=== PATIENT | female | born 1985 ===

== ENCOUNTER 2017-05-08 14:49 | Emergency (ER) | payer MEDICAID, OTHER ==
[~2017-05-08] VITALS: Ht 170.2 cm; Wt 72.7 kg
[~2017-05-08 14:49] MED LIST: IBUP-1827 PO
[2017-05-08 15:12] VITALS: BP 110/74; PULSE 100; RESP 20; O2SAT 99
[2017-05-08] MEDS ORDERED: 0.9% Sodium Chloride 1,000 ML IV ONE (16:02)
--- NOTE | 2017-05-08 16:02 | ED.REPORT ---
HPI-Abd Pain F Under 40 Date of Service May 08, 2017 ED Provider: History of Present Illness: 31-year-old female here for lower abdominal pain. Onset yesterday when she was having a bowel movement. Having a bowel movement worsened her pain but her pain is still severe even when not on the toilet. Not nauseous, no vomiting. She is able to tolerate by mouth in take. She feels like she is constipated and needs to have a bowel movement. Denies blood in her stool. Denies urinary symptoms, vaginal discharge. She also complains of low back pain bilateral that started yesterday. No radiation. Nursing Notes Stated Complaint: ABDOMINAL PAIN Chief Complaint: Female Abdominal Pain Nursing Notes Reviewed: Yes Allergies: Coded Allergies: Penicillins (Verified Allergy, Severe, RASH, 11/25/15) ciprofloxacin (Verified Allergy, Severe, RASH, 11/25/15) ciprofloxacin HCl (Verified Allergy, Severe, RASH, 11/25/15) Scheduled PRN Ibuprofen (Ibuprofen) 600 Mg Tablet 600 MG PO TID PRN PRN For Pain General Time Seen by MD: 15:52 Chief Complaint Abdominal pain, Constipation Hx Obtained From: Patient Arrived By: Walk-in Onset Occurred: 1 day ago Symptom Duration: Constant Location: : Abdomen lower Radiation: : Does not radiate Severity: Current: Severe Severity: Maximum: Severe Recent Healthcare: No recent doctor visit Similar Sx Previous: No Past Medical History Past Medical History Opioid dependence Alcohol abuse Pancreatitis Past Surgical History Carpal tunnel right hand, D and C Smoking History Current Every Day Smoker Social History Alcohol Use: In recovery Drug Use: IV drugs, Meth, Other Occupation lives with family, no work or school Ambulatory Status Independent Review of Systems Constitutional: Denies: Chills, Fatigue, Fever Respiratory: Denies: Dyspnea on exertion Cardiovascular: Denies: Chest pain GI: Reports: Abdominal pain, Constipation, Denies: Diarrhea, Nausea, Vomiting Female: Denies: Dysuria Musculoskeletal: Reports: Back pain Complete sys rev & neg: except as marked. Physical Exam Initial Vital Signs Vital Signs (First) Date Time Temp Pulse Resp B/P Pulse Ox O2 Delivery O2 Flow Rate FiO2 05/08/17 15:12 37.0 100 20 110/74 99 Room Air Initial VS: Reviewed, Vital signs normal General/Constitutional: Awake, Alert, Well appearing Distress / Hydration: Positive: Distress mild Patient rolling around and holding her stomach in the gurney, intermittently crying through the exam Respiratory / Chest: Breath sounds NL, Breath sounds = bilat, No respiratory distress, No rales, No rhonchi, No wheezing Cardiovascular: Heart rate NL, Regular rhythm, Heart sounds NL, Peripheral circulation NL Abdomen: Atraumatic, McBurney's non-tender, No guarding, No rebound, BS normoactive, No distention, No hernia, No palpable mass, No pulsatile mass Tenderness/Guarding/Rebound: Positive: Tender LLQ... (Severe), Tender RLQ... ( Moderate) Rectal exam exquisitely tender, guaiac-negative. No stool noted in the vault. No obvious abscess palpated but exam was quick as of the severity of the pain she was having. Back: Inspection NL, No CVA tenderness Flank / Spine / Paraspinal: Positive: Lumbar paraspinal tend... (Mid) Skin: Atraumatic, Color NL, No rash Interpretation & Diagnostics Lab Results Interpretation Result Diagram: 05/08/17 1600 05/08/17 1600 Test 05/08/17 16:00 White Blood Count 8.6th/mm3 (3.8-10.1) Red Blood Count 4.58mil/mm3 (3.90-5.20) Hemoglobin 12.8g/dL (12.0-15.6) Hematocrit 39.0% (35.0-46.0) Mean Corpuscular Volume 85.2fL (81-100) Mean Corpuscular Hemoglobin 27.9pg (27.0-35.0) Mean Corpuscular Hemoglobin Concent 32.8% (32.0-37.0) Red Cell Distribution Width 17.7% (12.3-15.4) Platelet Count 319bil/L (150-400) Neutrophils (%) (Auto) 75.4% (40-74) Lymphocytes (%) (Auto) 18.1% (14-46) Monocytes (%) (Auto) 5.6% (4-12) Eosinophils (%) (Auto) 0.7% (0-5) Basophils (%) (Auto) 0.1% (0-3) Sodium Level 137mEq/L (134-144) Potassium Level 3.8mEq/L (3.5-5.2) Chloride Level 102mEq/L (97-108) Carbon Dioxide Level 21mmol/L (18-29) Blood Urea Nitrogen 6mg/dL (6-20) Creatinine 0.68mg/dL (0.57-1.00) Estimat Glomerular Filtration Rate 144mL/min (>59) Glucose Level 102mg/dL (60-99) Calcium Level 9.0mg/dL (8.5-10.1) Magnesium Level 1.8mg/dL (1.6-2.6) Total Bilirubin 0.4mg/dL (0.0-1.2) Aspartate Amino Transf (AST/SGOT) 18U/L (0-50) Alanine Aminotransferase (ALT/SGPT) 9U/L (0-32) Alkaline Phosphatase 98U/L (25-150) Total Protein 7.5g/dL (6.4-8.4) Albumin 2.8g/dL (3.4-5.0) Lipase 15U/L (13-60) Human Chorionic Gonadotropin, Qual Negative (Negative) X-Ray Abdominal Interpretation PROCEDURE: X-RAY ACUTE ABDOMINAL SERIES ([id number]) INDICATIONS: constipation TECHNIQUE: One view chest and two views of the abdomen were acquired. COMPARISON: [facility], CR, ABD/AP 1VW, 11/26/2014, 9:52. FINDINGS: Surgical changes and devices: Intrauterine device present. Chest: Lungs are clear. Heart size is normal. No pleural effusions. No pneumoperitoneum. Abdomen: Bowel gas pattern is normal. Moderate diffuse colonic stool. No suspicious calcifications. Visualized solid organ contours appear normal. Bones: No suspicious bony lesions. IMPRESSION: No acute process. Moderate diffuse colonic stool. CT Abd / Pelvis Interpretation ROCEDURE: CT ABDOMEN AND PELVIS WITH CONTRAST ([id number]) INDICATIONS: abd pain TECHNIQUE: After the administration of oral and intravenous contrast, 5 mm thick sections acquired from the diaphragms to the symphysis. 5 mm thick coronal and sagittal reformats were performed. For radiation dose reduction, the following was used: automated exposure control, adjustment of mA and/or kV according to patient size. COMPARISON: [facility], CT, CT ABD PELVIS W CON, 11/25/2015, 10:04. FINDINGS: Image quality: Excellent. ABDOMEN: Lung bases: Lung bases are clear. Heart size is normal. Solid organs: Liver and spleen are normal in size and enhancement. Gallbladder is within normal limits. Biliary system is non-dilated. Pancreas enhances normally. No adrenal nodules. Kidneys are normal in size and enhancement, without hydronephrosis. Peritoneum and bowel: Stomach, small bowel, and colon loops are normal in caliber and wall thickness. Visualized portions of the appendix are within normal limits. An intrauterine device is present. 36 mm diameter right adnexal cyst is present. No pneumoperitoneum. Trace amount of free fluid in the pelvis, which is within physiologic limits in a menstruating female. Nodes and vessels: No retroperitoneal or mesenteric adenopathy. Aorta and inferior vena cava are normal in caliber. Miscellaneous: No ventral hernias. PELVIS: Genitourinary: Bladder wall thickness is normal. Miscellaneous: No inguinal hernias or adenopathy. Bones: No suspicious bony lesions. No vertebral body compression fractures. IMPRESSION: No acute process. Small amount of physiologic free fluid within the pelvis. Re-Eval/Medical Decision Med Decision/Clinical Course Med Decision/Clinical Course: oral contrast started late, 3 hrs into visit. pt continuously refuses to give urine sample 1954-patient very upset about length of stay here. Discussed we are still waiting for her urine sample and we needed a test before we could do any of our scans. She is still not willing to give us a urine sample. I have ordered a bladder scan and offered to catheterize her but she still will not give a urine sample I also would like to do a pelvic exam she is refusing this. She wants a laxative and wants to go home. She is cursing and very upset. The nurse is on her way in the room with the laxative now. I am not comfortable discharging her without an answer for her severe pain. Her pain seems to be out of porPortion for constipation. we discussed I would like to do a pelvic exam this time she is absolutely refusing. Will discharge patient at her wishes with percautions and red flags discussed. Patient left prior to her discharge instructions although I did discuss when to come back and follow-up with her. Her workup was essentially normal today Discharge & Departure Shift Change Sign-Out Laboratory Evaluation: Lab evaluation discussed Imaging Studies: Imaging discussed Procedures: Results discussed Response to Therapy: Unchanged Primary Impression: Constipation Constipation type: unspecified constipation type Qualified Code: K59.00 - Constipation, unspecified Additional Impression: Abdominal pain Abdominal location: generalized Qualified Code: R10.84 - Generalized abdominal pain Disposition: Home Discharge Condition All VS Reviewed: Yes Condition: Stable Patient Instructions: Acute Abdominal Pain (ED), Constipation (ED) Additional Instructions: Take stool softeners or laxatives as needed for constipation, these are available [id number], you do not need a prescription. return if fevers or worsening abdominal pain. your exam was not over today you still needed to have a pelvic exam done. But she wanted to leave prior to doing this. You welcome to come back at any time to finish the exam and treatment and I encouraged her to do this. Otherwise follow-up with her PCP tomorrow Referrals: OTHER,PHYSICIAN (PCP) [facility] EDSupervising Provider for APC: Niko Osborne Linnea K ARNP May 08, 2017 16:02
[2017-05-08 16:59] LABS: BASOPHILS % (AUTO) 0.1 % (0-3); EOSINOPHILS % (AUTO) 0.7 % (0-5); MONOCYTES % (AUTO) 5.6 % (4-12); Mean Corpuscular Hemoglobin 27.9 pg (27.0-35.0); Mean Corpuscular Volume 85.2 fL (81-100); NEUTROPHILS % (AUTO) 75.4 % (40-74); Platelet Count 319 bil/L (150-400)
[2017-05-08 17:21] LABS: Magnesium 1.8 mg/dL (1.6-2.6)
[2017-05-08] MEDS ORDERED: Iohexol 300 mg/mL 30 mL Inj PO ONE (18:05)
--- NOTE | 2017-05-08 19:05 | DRSVH ---
PROCEDURE: X-RAY ACUTE ABDOMINAL SERIES ([id number]) INDICATIONS: constipation TECHNIQUE: One view chest and two views of the abdomen were acquired. COMPARISON: [facility], CR, ABD/AP 1VW, 11/26/2014, 9:52. FINDINGS: Surgical changes and devices: Intrauterine device present. Chest: Lungs are clear. Heart size is normal. No pleural effusions. No pneumoperitoneum. Abdomen: Bowel gas pattern is normal. Moderate diffuse colonic stool. No suspicious calcifications. Visualized solid organ contours appear normal. Bones: No suspicious bony lesions. IMPRESSION: No acute process. Moderate diffuse colonic stool. Dictated by: Leonor Shetty M.D. on 05/08/2017 at 19:02 Approved by: Leonor Shetty M.D. on 05/08/2017 at 19:03
--- NOTE | 2017-05-08 19:33 | DRSVH ---
PROCEDURE: CT ABDOMEN AND PELVIS WITH CONTRAST ([id number]) INDICATIONS: abd pain TECHNIQUE: After the administration of oral and intravenous contrast, 5 mm thick sections acquired from the diap hragms to the symphysis. 5 mm thick coronal and sagittal reformats were performed. For radiation do se reduction, the following was used: automated exposure control, adjustment of mA and/or kV accordi ng to patient size. COMPARISON: [facility], CT, CT ABD PELVIS W CON, 11/25/2015, 10:04. FINDINGS: Image quality: Excellent. ABDOMEN: Lung bases: Lung bases are clear. Heart size is normal. Solid organs: Liver and spleen are normal in size and enhancement. Gallbladder is within normal olivares its. Biliary system is non-dilated. Pancreas enhances normally. No adrenal nodules. Kidneys are n ormal in size and enhancement, without hydronephrosis. Peritoneum and bowel: Stomach, small bowel, and colon loops are normal in caliber and wall thickness . Visualized portions of the appendix are within normal limits. An intrauterine device is present. 3 6 mm diameter right adnexal cyst is present. No pneumoperitoneum. Trace amount of free fluid in the p jovanny, which is within physiologic limits in a menstruating female. Nodes and vessels: No retroperitoneal or mesenteric adenopathy. Aorta and inferior vena cava are no rmal in caliber. Miscellaneous: No ventral hernias. PELVIS: Genitourinary: Bladder wall thickness is normal. Miscellaneous: No inguinal hernias or adenopathy. Bones: No suspicious bony lesions. No vertebral body compression fractures. IMPRESSION: No acute process. Small amount of physiologic free fluid within the pelvis. Dictated by: Leonor Shetty M.D. on 05/08/2017 at 19:29 Approved by: Leonor Shetty M.D. on 05/08/2017 at 19:31
[2017-05-08 20:01] VITALS: BP 133/91; PULSE 91; RESP 16; O2SAT 97
[2017-05-08 20:03] VITALS: BP 133/91; PULSE 91; RESP 16; O2SAT 97
== END 2017-05-08 20:04 | disposition home or self-care (01) ==
LOC: SED 14:49
DX: K59.00 Constipation, unspecified (principal); R10.84 Generalized abdominal pain; F17.200 Nicotine dependence, unspecified, uncomplicated; Z88.0 Allergy status to penicillin; Z88.1 Allergy status to other antibiotic agents
CPT/HCPCS: 36415; 74022; 74177; 80053; 83690; 83735; 84703; 85025; 96361; 96374; 99285; J1885; J7030; Q9967

== ENCOUNTER 2017-06-25 15:23 | Emergency (ER) | payer MEDICAID, OTHER ==
[~2017-06-25] VITALS: Ht 172.7 cm; Wt 72.7 kg
[2017-06-25 15:29] VITALS: BP 168/88; PULSE 77; RESP 20; O2SAT 98
[2017-06-25] MEDS ORDERED: Ondansetron 2 mg/mL 2 mL Inj ONE (15:39)
[2017-06-25 15:51] LABS: BASOPHILS % (AUTO) 0.1 % (0-3); EOSINOPHILS % (AUTO) 0 % (0-5); MONOCYTES % (AUTO) 1.6 % (4-12); Mean Corpuscular Hemoglobin 27.6 pg (27.0-35.0); Mean Corpuscular Volume 83.5 fL (81-100); NEUTROPHILS % (AUTO) 85.7 % (40-74); Platelet Count 454 bil/L (150-400)
--- NOTE | 2017-06-25 15:53 | ED.REPORT ---
HPI-Abd Pain F Under 40 Date of Service Jun 25, 2017 ED Provider: Hortencia Alberto History of Present Illness: c/o of all over pain, requesting detox. Nursing Notes Stated Complaint: HEROIN WITHDRAWAL Chief Complaint: Female Abdominal Pain Nursing Notes Reviewed: Yes Allergies: Coded Allergies: Penicillins (Verified Allergy, Severe, RASH, 11/25/15) ciprofloxacin (Verified Allergy, Severe, RASH, 11/25/15) ciprofloxacin HCl (Verified Allergy, Severe, RASH, 11/25/15) Scheduled PRN Ibuprofen (Ibuprofen) 600 Mg Tablet 600 MG PO TID PRN PRN For Pain General Time Seen by MD: 15:51 Chief Complaint Vomiting mild, Other (all over pain) Hx Obtained From: Patient Sudden in Onset?: No Past Medical History Past Medical History Notes: RA Past Medical History Opioid dependence Alcohol abuse Pancreatitis Past Surgical History Carpal tunnel right hand, D and C Smoking History Current Every Day Smoker Social History Alcohol Use: In recovery Drug Use: IV drugs, Meth, Other Occupation lives with family, no work or school Ambulatory Status Independent Review of Systems Basic Review of Systems Eyes: Vision NL, No discharge Skin: No bruising, No rash, No itch Physical Exam Initial Vital Signs Vital Signs (First) Date Time Temp Pulse Resp B/P Pulse Ox O2 Delivery O2 Flow Rate FiO2 06/25/17 15:29 36.9 77 20 168/88 98 Room Air Initial VS: Reviewed, Vital signs normal Head / Eyes: Atraumatic, Normocephalic, PERRL ENT: Mucous membranes moist, Conjunctiva normal, No scleral icterus Neck: Supple, Non-tender, Full range of motion Lymphatic: No lymphadenopathy Extremities: Vascular intact, Neuro intact, No swelling, No tenderness Skin: Warm, Dry, No cyanosis Neurologic: Alert, Oriented, Nonfocal Psychiatric: Mood/affect normal, Behavior normal, Normal thought content General/Constitutional: Awake, Alert, No acute distress, Well appearing, Well developed, Well hydrated Respiratory / Chest: Atraumatic, Breath sounds NL, Breath sounds = bilat, No respiratory distress Cardiovascular: Heart rate NL, Regular rhythm, Heart sounds NL, No gallop Abdomen: Atraumatic, Soft, Non-tender Back: Atraumatic, Inspection NL, Full range of motion Head / Eyes: Atraumatic, Normocephalic, PERRL, EOMI Interpretation & Diagnostics Lab Results Interpretation Result Diagram: 06/25/17 1542 06/25/17 1542 Test 06/25/17 15:42 06/25/17 16:47 06/25/17 18:25 06/25/17 19:19 White Blood Count 10.4th/mm3 (3.8-10.1) Red Blood Count 5.44mil/mm3 (3.90-5.20) Hemoglobin 15.0g/dL (12.0-15.6) Hematocrit 45.4% (35.0-46.0) Mean Corpuscular Volume 83.5fL (81-100) Mean Corpuscular Hemoglobin 27.6pg (27.0-35.0) Mean Corpuscular Hemoglobin Concent 33.0% (32.0-37.0) Red Cell Distribution Width 16.2% (12.3-15.4) Platelet Count 454bil/L (150-400) Neutrophils (%) (Auto) 85.7% (40-74) Lymphocytes (%) (Auto) 12.3% (14-46) Monocytes (%) (Auto) 1.6% (4-12) Eosinophils (%) (Auto) 0% (0-5) Basophils (%) (Auto) 0.1% (0-3) Sodium Level 138mEq/L (134-144) Potassium Level 4.1mEq/L (3.5-5.2) Chloride Level 100mEq/L (97-108) Carbon Dioxide Level 21mmol/L (18-29) Blood Urea Nitrogen 7mg/dL (6-20) Creatinine 0.70mg/dL (0.57-1.00) Estimat Glomerular Filtration Rate 139mL/min (>59) Glucose Level 115mg/dL (60-99) Calcium Level 8.9mg/dL (8.5-10.1) Total Bilirubin 0.9mg/dL (0.0-1.2) Aspartate Amino Transf (AST/SGOT) 22U/L (0-50) Alanine Aminotransferase (ALT/SGPT) 11U/L (0-32) Alkaline Phosphatase 111U/L (25-150) Total Protein 8.5g/dL (6.4-8.4) Albumin 3.4g/dL (3.4-5.0) Troponin T < 0.010ug/L (0.0-0.011) Lactic Acid Level 1.1mmol/L (0.4-2.0) Lab Results Interpretation: urine with positive nitrates Re-Eval/Medical Decision Med Decision/Clinical Course Med Decision/Clinical Course: 31 year old female presents for evualtion of all over body pain and requesting detox. Initially it was thought a bed would be available but the final decision from crisis center was no bed is available at this time. Patient labs are unremarkable except for a lactic of 2.1 which droped to 1.1 aftr a liter of fluid. Urine does show positive nitrates. Provided rocephin IV and oral bactrim. Encouraged follow up with [facility]. Patient appears more comfortable after fluids, toradol, zofran and tylenol and haldol Discharge & Departure Primary Impression: Bladder infection Additional Impression: Opioid dependence with withdrawal Disposition: Home Patient Instructions: Urinary Tract Infection in Women (ED) Additional Instructions: Your urine indicates an infection. Your white count is normal. Your CMP is unremarkable. You received a jac injection in the ER. Also a dose of rocephin and bactrim. Continue on the bactrim in the am and pm for 7 days. Can use zofran 4 mg up to 3 times a day if needed for nausea. Also start omeprazole daily. This will help with stomach upset. Sadly, there is not a bed available at [facility] this evening. You can call tomorrow morning and see if they will have a bed available. If not please consider [facility]. If you call on Tuesday, there is an excellent chance you will be seen on Tuesday. Referrals: NOPCP (PCP) [facility] EDSupervising Provider for APC: Tashi Mcguire DO copies to: [facility] Hortencia Alberto Jun 25, 2017 15:53
[2017-06-25] MEDS ORDERED: 0.9% Sodium Chloride 1,000 ML IV ONE ×2 (16:05→17:10)
--- NOTE | 2017-06-25 16:38 | DRSVH ---
PROCEDURE: X-RAY CHEST, TWO VIEWS ([id number]) INDICATIONS: 31 year-old female with abdominal pain. TECHNIQUE: 2 views of the chest were acquired. COMPARISON: [facility], CR, XR ABD ACUTE SERIES 3VW, 05/08/2017, 18:55. [facility], , CHEST 2 VIEW, 12/21/2010, 10:54. [facility], , CHEST 1 VIEW, 12/07/2008, 16:09. FINDINGS: Surgical changes and devices: None. Lungs and pleura: No pleural effusions or pneumothorax. Lungs are clear. Mediastinum: Mediastinal contours are normal. Heart size is normal. Bones and chest wall: No suspicious bony abnormalities. No pneumoperitoneum. Soft tissues appear un remarkable. IMPRESSION: No acute cardiopulmonary disease. Dictated by: Eduar Armenta M.D. on 06/25/2017 at 16:36 Approved by: Eduar Armenta M.D. on 06/25/2017 at 16:37
--- NOTE | 2017-06-25 16:48 | DRSVH ---
PROCEDURE: CT KUB ([id number]) INDICATIONS: 31 year-old female with abdominal and flank pain. TECHNIQUE: Noncontrast 5 mm thick sections acquired from the diaphragms to the symphysis. 5 mm thick coronal an d sagittal reformats were then performed. For radiation dose reduction, the following was used: aut omated exposure control, adjustment of mA and/or kV according to patient size. COMPARISON: [facility], CT, CT ABD PELVIS W CON, 05/08/2017, 19:10. FINDINGS: Image quality: Excellent. Lung bases: Lung bases are clear. Heart size is normal. Urinary system: Both kidneys are normal in size. No kidney stones. No hydronephrosis or perinephri c fat stranding. Both ureters appear non-dilated throughout their expected courses. Bladder wall th ickness is normal; no calcified bladder stones. Other solid organs: Liver and spleen are normal in size. Gallbladder wall thickness is normal. Osman creas is normal in contours. No adrenal nodules. Peritoneum and bowel: Unenhanced bowel loops demonstrate normal wall thickness and caliber. The reese endix is not well-seen in the absence of contrast. No free fluid or air. Nodes and vessels: No retroperitoneal or mesenteric adenopathy by size criteria. Aorta and inferior vena cava are normal in caliber. Abdominal wall: No ventral hernias. Pelvis: No free pelvic fluid. No inguinal hernias or adenopathy. Uterus is normal in size, with in trauterine contraceptive device in expected position. The ovaries are not well seen in the absence of contrast. Bones: No suspicious bony lesions. No vertebral body compression fractures. IMPRESSION: No kidney stones or hydronephrosis to explain abdominal and flank pain. Dictated by: Eduar Armenta M.D. on 06/25/2017 at 16:37 Approved by: Eduar Armenta M.D. on 06/25/2017 at 16:46
[2017-06-25] MEDS ORDERED: Famotidine Inj 20 MG in IV Premix 1 EACH IV ONE (16:55)
[2017-06-25] MEDS ORDERED: Haloperidol 5 mg/mL Inj IVPUSH ONE (16:55)
[2017-06-25 17:15] VITALS: PULSE 68; RESP 20; O2SAT 100
[2017-06-25 17:29] VITALS: BP 148/71; PULSE 48; RESP 20; O2SAT 100
[2017-06-25] MEDS ORDERED: cefTRIAXone Inj 2,000 MG in Dextrose 5% Minibag Plus 50 ML IV ONE (18:25)
[2017-06-25] MEDS ORDERED: Trimethoprim-Sulfa 160 mg-800 mg Tablet PO ONE (18:25)
[2017-06-25 19:33] VITALS: BP 113/52; PULSE 85; RESP 20; O2SAT 100
[2017-06-25 21:11] VITALS: BP 132/74; PULSE 68; RESP 20; O2SAT 100
== END 2017-06-25 21:15 | disposition home or self-care (01) ==
LOC: SED 15:23 → EDBD 15:23 → SED 21:15
DX: N30.90 Cystitis, unspecified without hematuria (principal); F11.23 Opioid dependence with withdrawal; F10.10 Alcohol abuse, uncomplicated; F17.200 Nicotine dependence, unspecified, uncomplicated; Z88.0 Allergy status to penicillin; Z88.1 Allergy status to other antibiotic agents
CPT/HCPCS: 36415; 71020; 74176; 80053; 81025; 83605; 84484; 85025; 87491; 87591; 93005; 96361; 96365; 96367; 96375; 99285; J0696; J1630; J1885; J2405; J3490; J7030